=== PATIENT | female | born 1970 | race American Indian/Alaskan Native ===

== ENCOUNTER 2018-12-05 08:25 | Outpatient (CLI) | payer MEDICAID | END 2018-12-05 08:26 | disposition home or self-care (01) | LOC: WOUND 08:25 | PROVIDERS: ATTEND Surgery | DX: S81.802D Unspecified open wound, left lower leg, subsequent encounter (principal); X58.XXXD Exposure to other specified factors, subsequent encounter | CPT/HCPCS: 99215; G0463 ==

== ENCOUNTER 2018-12-11 09:38 | Outpatient (CLI) | payer MEDICAID ==
--- NOTE | 2018-12-11 11:12 | Vascular Lab Report ---
DUPLEX DOPPLER LOWER EXTREMITY VEINS, LEFT INDICATION: M79.662) Pain in left lower leg.. TECHNIQUE: Duplex doppler imaging was performed through the veins of the left lower extremity using venous compr ession and other maneuvers. COMPARISON: None available. FINDINGS: Common femoral vein: Negative. Superficial femoral vein: Negative. Popliteal vein: Negative. Calf veins: Negative. Additional findings: There is no evidence of a popliteal cyst or other abnormality. IMPRESSION: No sonographic evidence for DVT in the left lower extremity. Signer Name: Hay Hubbard MD Signed: 12/11/2018 11:07 AM Workstation Name: [id number]
== END 2018-12-11 09:39 | disposition home or self-care (01) ==
LOC: VAS 09:38
PROVIDERS: ATTEND Surgery
DX: M79.662 Pain in left lower leg (principal)
CPT/HCPCS: 36415; 83036

== ENCOUNTER 2019-01-16 10:46 | Outpatient (CLI) | payer MEDICAID ==
[2019-01-16 11:40] LABS: Blood Urea Nitrogen 13 mg/dL (7-17)
--- NOTE | 2019-01-16 14:54 | Cat Scan Report ---
CT abdomen pelvis wo con INDICATION: I89.0 LYMPADEMA DISORDER/HEAVY CYCLE. TECHNIQUE: All CT scans at this location are performed using the following dose modulation technique: Automated exposure control. Helical slices were obtained through the abdomen and pelvis. No contrast is adminis tered. COMPARISON: None available. FINDINGS: Abdomen: No acute abnormality is seen in the lung bases. The heart is enlarged The liver is enlarged measuring 19 cm in length. There is increased density in the liver. This is not specific but could in dicate hemachromatosis or amiodarone toxicity. The spleen is unremarkable. The pancreas, adrenal glan ds, and kidneys are. The aorta is normal in diameter. No adenopathy is seen. There is cholelithiasis. There is no obstruction, inflammation, or free air. Pelvis: The appendix is unremarkable. There is no inflammatory change. The uterus appears enlarged an d irregular suggesting fibroids. Phleboliths are noted in the pelvis. On review of bone windows, no acute osseous abnormalities are seen. IMPRESSION: There is cholelithiasis. There is no obstruction, inflammation, or free air. There are no abnormal collections. There is increased density in the liver. This is not specific but could indicate hemachromatosis or a miodarone toxicity. Signer Name: Parrish Wise MD Signed: 01/16/2019 2:49 PM Workstation Name: [id number]
== END 2019-01-16 10:47 | disposition home or self-care (01) ==
LOC: CT 10:46
PROVIDERS: ATTEND Internal Medicine Hematology & Oncology
DX: K80.20 Calculus of gallbladder without cholecystitis without obstruction (principal); I89.0 Lymphedema, not elsewhere classified
CPT/HCPCS: 36415; 74176; 82565; 84520

== ENCOUNTER 2019-04-14 08:23 | Day surgery (SDC) | payer MEDICAID ==
[2019-04-14] MEDS ORDERED: ONDANSETRON 4 MG/2 ML INJ IV ONE (08:47)
[2019-04-14] MEDS ORDERED: HYDROmorphone 2 MG/1 ML INJ IV ONE (08:47)
[2019-04-14 08:59] LABS: Hematocrit 27.7 % (30.3-42.9); Hemoglobin 8.8 gm/dl (10.1-14.3); Mean Corpuscular HGB Conc 32 % (30-34); Platelet Count 246 K/mm3 (140-440); Red Blood Count 3.99 M/mm3 (3.65-5.03)
[2019-04-14 09:04] LABS: Mean Corpuscular Volume 70 fl (79-97); Red Cell Distribution Width 20.7 % (13.2-15.2)
[2019-04-14 09:18] LABS: INR 0.97 (0.87-1.13)
[2019-04-14 09:19] LABS: Partial Thromboplastin Time 31.4 Sec. (24.2-36.6)
[2019-04-14 09:58] LABS: Total Cells Counted 100
[2019-04-14 10:00] LABS: Anisocytosis 1+; Hypochromasia 1+; Large Platelets Rare; Ovalocytes Few; Platelet Estimate Consistent w Auto; Poikilocytosis 1+; Target Cells Rare
[2019-04-14] MEDS ORDERED: HYDROmorphone 1 MG/1 ML INJ ONE (10:21)
--- NOTE | 2019-04-14 13:35 | Cat Scan Report ---
CT-guided liver biopsy INDICATION : lymphedema. Abnormal labs COMPARISON: CT abdomen/pelvis from 01/16/2019 PROCEDURE: The risks (including but not limited to bleeding and infection) and benefits were explain ed to the patient and informed consent was obtained. All CT scans at this location are performed usi ng CT dose reduction for ALARA by means of automated exposure control. A time out procedure was performed. The procedure site was prepped and draped in the usual sterile f ashion and lidocaine was used for local anesthesia. The patient was placed supine on the CT table and CT guidance was used throughout the exam. A 19-gaug e coaxial needle was advanced from a right anterolateral approach into the posterior hepatic segment and 3 separate 2 cm 20-gauge biopsies were obtained. The samples were placed directly in formalin and sent to surgical pathology for further evaluation. An immediate postprocedure scan showed no complic ation. The patient tolerated the procedure well with no complications. IMPRESSION: Technically successful CT-guided liver biopsy. Signer Name: Taras Wu MD Signed: 04/14/2019 1:31 PM Workstation Name: [id number]
[2019-04-14 13:39] VITALS: BP 154/81
== END 2019-04-14 14:18 | disposition home or self-care (01) ==
LOC: CATHLABREC 08:23 → EDSTATUS 08:30 → CATHLABREC 14:18
PROVIDERS: ATTEND Internal Medicine Hematology & Oncology
DX: I89.0 Lymphedema, not elsewhere classified (principal); G62.9 Polyneuropathy, unspecified; K21.9 Gastro-esophageal reflux disease without esophagitis; I10 Essential (primary) hypertension; R79.89 Other specified abnormal findings of blood chemistry; Z79.899 Other long term (current) drug therapy; Z91.040 Latex allergy status; Z87.442 Personal history of urinary calculi; Z98.890 Other specified postprocedural states; Z98.891 History of uterine scar from previous surgery; Z86.2 Personal history of diseases of the blood and blood-forming organs and certain disorders involving the immune mechanism
CPT/HCPCS: 36415; 47000; 77012; 85007; 85025; 85610; 85730; 88307; 88313; 96374; 96375; J2405; J1170

== ENCOUNTER 2020-10-26 08:58 | Day surgery (SDC) | payer MEDICAID ==
[~2020-10-26 08:58] MED LIST: SODIUM CHLORIDE 0.9% 1000 ML 1,000 ML IV SCH
--- NOTE | 2020-10-26 09:26 | Anesthesia Day of Surgery ---
Anesthesia Day of Surgery - Day of Surgery Patient Examined: Yes Patient H&P Reviewed: Yes Patient is NPO: Yes
--- NOTE | 2020-10-26 09:28 | Anesthesia Consultation ---
Anesthesia Consult and Med Hx Date of service: 10/26/20 - Airway Anesthetic Teeth Evaluation: Chipped ROM Head & Neck: Adequate Mental/Hyoid Distance: Adequate Mallampati Class: Class III Intubation Access Assessment: Probably Good - Pre-Operative Health Status ASA Pre-Surgery Classification: ASA3 Proposed Anesthetic Plan: MAC - Pulmonary Hx Smoking: No - Cardiovascular System Hx Hypertension: Yes (CHF and dilated cardiomyopathy improved now) Hx Heart Attack/AMI: No (+Cardiac clearance) Hx Peripheral Vascular Disease: Yes (Chronic lymphedema RLE) - Central Nervous System Hx Psychiatric Problems: No - Gastrointestinal Hx Ulcer: Yes - Hematic Hx Anemia: Yes Hx Sickle Cell Disease: No - Other Systems Hx Cancer: No Hx Obesity: Yes
[2020-10-26] MEDS ORDERED: GLYCOPYRROLATE 0.4 MG/2 ML INJ ONE (10:55)
--- NOTE | 2020-10-26 11:25 | Short Stay Summary ---
Short Stay Documentation Date of service: 10/26/20 Narrative H&P: The patient presents for colonoscopy due to a positive Cologuard test. No prior colon studies. - History Past Medical History: heart failure (History of CHF. Cleared for colonoscopy by cardiology) Past Surgical History: Social history: no significant social history - Allergies and Medications Current Medications: Allergies latex Allergy (Verified 04/14/19 08:45) Unknown Home Medications Medication Instructions Recorded Confirmed Last Taken Type Gabapentin 300 mg PO BID 04/14/19 04/14/19 04/13/19 History 300 mg Ibuprofen [Motrin 800 MG tab] 800 mg PO DAILY PRN 04/14/19 04/14/19 04/07/19 History 800 mg Omeprazole 20 mg PO DAILY 04/14/19 04/14/19 04/13/19 History 20 mg hydroCHLOROthiazide [HCTZ] 25 mg PO DAILY 04/14/19 04/14/19 04/13/19 History 25 mg Aspirin [Adult Aspirin] 81 mg PO DAILY 10/25/20 10/25/20 Unknown History Docusate Sodium [Colace] 100 mg PO BID PRN 10/25/20 10/25/20 Unknown History Ferrous Sulfate [Ferrous Sulfate 324 mg PO BID 10/25/20 10/25/20 Unknown History 324 MG] Furosemide [Lasix] 40 mg PO DAILY 10/25/20 10/25/20 Unknown History Gabapentin [Neurontin] 300 mg PO Q8HR 10/25/20 10/25/20 Unknown History Losartan Potassium 100 mg PO DAILY 10/25/20 10/25/20 Unknown History Metoprolol Tartrate [Lopressor] 100 mg PO BID 10/25/20 10/25/20 Unknown History Spironolactone [Aldactone] 25 mg PO QDAY 10/25/20 10/25/20 Unknown History Active Medications Sodium Chloride (Nacl 0.9% 1000 Ml) 1,000 mls @ 50 mls/hr IV DIRECT ARIANNA - Physical exam General appearance: no acute distress, well-nourished Integumentary: no rash, no growths, no abnormal pigmentation HEENT: Atraumatic, PERRLA, EOMI, Mucous membr. moist/pink Lungs: Clear to auscultation Heart: Regular rate, Normal S1, Normal S2, No murmurs Gastrointestinal: normoactive bowel sounds, no tenderness, no distended, no masses, no guarding, no organomegaly, no obese Female Genitourinary: deferred Rectal Exam: normal exam-external/orifice, normal rectal tone, no tenderness, no hemorrhoids, no mass Extremities: no ischemia, pulses intact, pulses symmetrical, No edema, normal temperature, normal color Neurological: Normal gait, Normal speech, Strength at 5/5 X4 ext, Normal tone, Sensation intact, Cranial nerves 3-12 NL - Brief post op/procedure progress note Date of procedure: 10/26/20 Findings: see dictation Estimated blood loss: none Pathology: list (1) biopsy of large distal transverse polyp 2) biopsy of large rectosigmoid junction polyp) Specimen disposition: to lab Condition: stable - Disposition Condition at discharge: Good Disposition: DC-01 TO HOME OR SELFCARE - Discharge Diagnoses (1) Positive colorectal cancer screening using Cologuard test Status: Acute (2) History of CHF (congestive heart failure) Status: Acute (3) Hypertension Status: Acute Short Stay Discharge Plan Activity: other (no driving for 24 hours) Weight Bearing Status: Full Weight Bearing Diet: regular Follow up with: ASPEN ECHEVARRIA MD [Primary Care Provider] - 7 Days
[2020-10-26] MEDS ORDERED: propofoL 200 MG/20 ML VIAL IV ONE ×2 (11:33)
--- NOTE | 2020-10-26 11:36 | Operative Report ---
Operative Report Operative Report: Date of procedure: 10/26/2020 Preprocedure diagnosis: Positive Cologuard test (previously scheduled a screen ing however the Cologuard test became positive since the office visit) Post procedure diagnosis: #1 large polyp in the distal transverse colon, #2 large polyp at the rectosigmoid junction. Procedure: Colonoscopy to the cecum with limited biopsies of each polyp and mucosal tattooing just distal to the transverse colon lesion. Endoscopist: Dr. Tomas Anesthesia: Monitored anesthesia care per anesthesia department Estimated blood loss: 0 Medications: Monitored anesthesia care. See separate report by anesthesia for details. After careful discussion of the nature and purpose of the procedure as well as details of the technique risks benefits and alternatives the patient gave consent. Please see recent history and physical from the office. The patient was placed in the left lateral decubitus position and medicated per anesthesia. A rectal exam was performed sphincter tone was normal there were no masses palpable. The [employer] 570 scope was passed transanally and advanced under continuous direct vision without difficulty to the cecum. The colon was well prepared. The cecum was normal. The ascending colon was normal and on forward and retroflexed views. There was a large polyp with a broad-based attachment, approximately 3.5 cm wide and a pedunculated portion in the center. It was determined that this polyp would be better served by en bloc resection utilizing an EMR technique and therefore it was elected to take a single biopsy from the pedunculated central portion and to place a tattoo distal to the lesion for future localization endoscopically or possible surgery. The descending colon was normal. A second large polyp with a broad-based attachment was found at the rectosigmoid junction, also approximately with a 3.5 cm wide base and a central pedunculated portion. Likewise, a single biopsy was taken from the pedunculated central region of the polyp. There was no attempt at removal of either lesion was made as both could potentially be removed by EMR. The rectum was normal on forward and retroflexed views. The procedure was well-tolerated overall and the patient was observed in recovery. Conclusions: Large, broad-based polyps in the distal transverse and at the rectosigmoid junction. Single biopsies taken from a pedunculated portion of each lesion. The polyps were not removed as the patient may be a candidate for EMR if there is no suggestion of cancer in the limited biopsies taken. Plan: Await pathology. Referral for EMR (endoscopic mucosal resection) consideration if there is no suggestion of cancer on biopsies. Signed electronically: Dilshad Tomas M.D.
[2020-10-26] MEDS ORDERED: WATER FOR IRRIG STERILE 1,000 ML BOTTLE ONE (14:22)
[2020-10-26] MEDS ORDERED: LIDOCAINE MPF (2%) 20 MG/1 ML VIAL 5 ML ONE (14:30)
--- NOTE | 2020-10-26 15:43 | Post Anesthesia Evaluation ---
- Post Anesthesia Evaluation Patient Participated: Yes Airway Patent: Yes Stable Respiratory Function: Yes Nausea/Vomiting: No Temp > 96.8F: Yes Pain Manageable: Yes Adequeate Hydration: Yes Anesthesia Complications: No Block Receding Appropriately: Not Applicable Patient on Ventilator: No
[2020-10-26 16:26] VITALS: BP 122/68
== END 2020-10-26 12:35 | disposition home or self-care (01) ==
LOC: GIO 08:58
PROVIDERS: ATTEND Internal Medicine Gastroenterology
PROC: 0DBK8ZZ Excision of Ascending Colon, Via Natural or Artificial Opening Endoscopic (ICD-10-PCS; principal; 2020-10-26)
PROC: 3E0H87Z Introduction of Electrolytic and Water Balance Substance into Lower GI, Via Natural or Artificial Opening Endoscopic (ICD-10-PCS; 2020-10-26)
DX: R19.5 Other fecal abnormalities (principal); D12.3 Benign neoplasm of transverse colon; K63.89 Other specified diseases of intestine; K21.9 Gastro-esophageal reflux disease without esophagitis; E66.9 Obesity, unspecified; I10 Essential (primary) hypertension; M19.90 Unspecified osteoarthritis, unspecified site; Z86.79 Personal history of other diseases of the circulatory system; Z79.82 Long term (current) use of aspirin; Z79.899 Other long term (current) drug therapy; Z91.040 Latex allergy status; Z88.8 Allergy status to other drugs, medicaments and biological substances; Z98.890 Other specified postprocedural states
CPT/HCPCS: 45380; 45381; 88305; J2704; J7030